=== PATIENT | male | born 1955 | race Caucasian/White ===

== ENCOUNTER 2019-07-21 13:38 | Inpatient (IN) | payer MEDICARE, OTHER ==
[~2019-07-21] VITALS: Ht 171.5 cm; Wt 74.0 kg
[~2019-07-21 13:38] MED LIST: AMLO5TAB9 PO; FLUT1DIS26 IH; LEVO50TA6 PO; TIOT18CA2 IH
--- NOTE | 2019-07-21 14:14 | NUR ---
SEE LIST FOR CURRENT MEDS
[2019-07-21] MEDS ORDERED: NS IV 1000 ML 1,000 ML IV ONE (14:18)
[2019-07-21 14:24] LABS: BASOPHILS % (AUTO) 0 % (0-10); EOSINOPHILS # (AUTO) 0.1 10^3/uL (0.0-0.3); EOSINOPHILS % (AUTO) 0 % (0-10); HEMATOCRIT 41 % (40-54); HEMOGLOBIN 14.1 G/DL (13.3-17.7); LYMPHOCYTES # (AUTO) 2.7 X 10^3 (1.0-4.0); LYMPHOCYTES % (AUTO) 15 % (12-44); MEAN CORPUSCULAR HEMOGLOBIN 31 PG (25-34); MEAN CORPUSCULAR HGB CONC 34 G/DL (32-36); MEAN CORPUSCULAR VOLUME 90 FL (80-99); MONOCYTES # (AUTO) 1.4 X 10^3 (0.0-1.0); MONOCYTES % (AUTO) 7 % (0-12); NEUTROPHILS # (AUTO) 14.4 X 10^3 (1.8-7.8); NEUTROPHILS % (AUTO) 78 % (42-75); PLATELET COUNT 315 10^3/uL (130-400); RED CELL DISTRIBUTION WIDTH 13.2 % (10.0-14.5); WHITE BLOOD COUNT 18.5 10^3/uL (4.3-11.0)
--- NOTE | 2019-07-21 14:45 | ED General ---
General Chief Complaint: Abdominal/GI Problems Stated Complaint: ABD PAIN;STIFF NECK;BACK PAIN Nursing Triage Note: PT AMBULATE TO TRIAGE WITH C/O ABD PAIN, HEADACHE, DIARRHEA, STIFF NECK STARTING 10 DAYS AGO AFTER BEING GIVEN MEDICATION FROM HIS PCP FOR RIGHT SIDED ABD PAIN. Nursing Sepsis Screen: No Definite Risk Source of Information: Patient (PT AND BOTH ANXIOUS, TALKING NON-STOP AT SAME TIME, MULTITUDE OF COMPLAINTS, DIFFICULT TO KEEP ON SUBJECT), Spouse History of Present Illness Date Seen by Provider: Jul 21, 2019 Time Seen by Provider: 14:20 Initial Comments PT ARRIVES VIA POV FROM HOME MULTITUDE OF COMPLAINTS STATES ALL SYMPTOMS BEGAN 07/13/19 C/O GENERALIZED PAIN --"MY WRISTS, MY NECK, MY BACK" STATES "IT STARTED IN MY NECK AND MOVED DOWN TO MY BACK AND THEN MY SHOULDERS, MY CHEST, DOWN MY ARMS AND NOW IT'S IN MY WRISTS" STATES "CAN'T SLEEP, CAN'T EAT" STATES HE SAW DR. MONTALVO 07/14/19 FOR NAUSEA/VOMITING/DIARRHEA AND RIGHT SIDED ABDOMINAL PAIN AND WAS STARTED ON CIPRO AND FLAGYL--PT STATES HE STOPPED TAKING IT ON Wednesday07/18/19 BECAUSE HE THOUGHT IT WAS MAKING HIM WORSE STATES HE HAS NOT ACTUALLY VOMITED, JUST BEEN NAUSEATED. HAS HAD DIARRHEA X 1 TODAY HAS HAD RIGHT SIDED ABDOMINAL PAIN STATES HE "ISN'T HAVING ANY PROBLEMS URINATING--WHEN I DO GO--I'VE ONLY GONE TWICE IN THE LAST 4 DAYS" NO FEVER, BUT HAS HAD SUBJECTIVE CHILLS HAS NOT TAKEN ANYTHING FOR SYMPTOMS NO SICK CONTACTS NO SUSPICIOUS FOODS NO HISTORY OF SIMILAR STATES HE ALSO SAW DR. MONTALVO THIS PAST Wednesday07/17/19 AND HAS A FOLLOW UP APPOINTMENT THIS COMING Wednesday07/24/19 FOR THIS PROBLEM PCP: DR. MONTALVO Allergies and Home Medications Allergies Coded Allergies: No Known Drug Allergies (Unverified , 12/25/15) Home Medications Amlodipine Besylate 5 Mg Tablet, 5 MG PO DAILY, (Reported) Fluticasone/Salmeterol 1 Each Blst.w.dev, 1 EACH IH BID, (Reported) Levothyroxine Sodium 50 Mcg Tablet, 50 MCG PO DAILY, (Reported) Tiotropium [place] 1 Inh Aerp, 2 INH IH DAILY, (Reported) Patient Home Medication List Home Medication List Reviewed: Yes Review of Systems Review of Systems Constitutional: see HPI, chills, malaise EENTM: no symptoms reported Respiratory: no symptoms reported; No cough, No short of breath Cardiovascular: no symptoms reported; No chest pain Gastrointestinal: see HPI, abdominal pain, diarrhea, loss of appetite, nausea; No vomiting Genitourinary: see HPI, decreased output Musculoskeletal: see HPI, back pain, joint pain, joint swelling, muscle pain, muscle stiffness, neck pain Skin: no symptoms reported Psychiatric/Neurological: No Symptoms Reported; Denies Headache, Denies Numbness, Denies Paresthesia, Denies Seizure, Denies Tingling, Denies Weakness Hematologic/Lymphatic: No Symptoms Reported Immunological/Allergic: no symptoms reported Past Cqibfvi-Naxjlz-Cqddfg Hx Patient Social History Alcohol Use: Regular Use Alcohol Beverage of Choice: Beer Recreational Drug Use: Yes (THC) Drug of Choice: POT Smoking Status: Former Smoker Type Used: Cigars 2nd Hand Smoke Exposure: No Recent Foreign Travel: No Contact w/Someone Who Travel: No Recent Infectious Disease Expo: No Recent Hopitalizations: No Physical Abuse: No Sexual Abuse: No Fear: No Immunizations Up To Date Date of Pneumonia Vaccine: Dec 13, 2014 Date of Influenza Vaccine: Aug 26, 2015 Seasonal Allergies Seasonal Allergies: Yes Past Medical History Surgeries: Yes (CATARACTS, EGD/ESOPHAGEAL DILATION) Eye Surgery, Tonsillectomy Respiratory: Yes Asthma, COPD Currently Using CPAP: No Currently Using BIPAP: No Cardiac: Yes High Cholesterol, Hypertension Neurological: No Genitourinary: No Gastrointestinal: Yes (ESOPHAGEAL DILATION FOR STRICTURE) Musculoskeletal: Yes Arthritis Endocrine: Yes Hypothyroidsim HEENT: Yes (CATARACT SURGERY) Cataract Loss of Vision: Denies Hearing Impairment: Denies Cancer: No Psychosocial: No Integumentary: No Blood Disorders: No Physical Exam Vital Signs Vital Signs - First Documented 07/21/19 13:47 Temp 36.6 Pulse 143 Resp 19 B/P (MAP) 125/88 (100) Pulse Ox 98 O2 Delivery Room Air Capillary Refill : Less Than 3 Seconds Height, Weight, BMI Height: 5'8.00" Weight: 170lbs. oz. 77.033325fs; 162.00 BMI Method: General Appearance: No Apparent Distress, WD/WN, Anxious HEENT: PERRL/EOMI, Other (POOR DENTITION) Neck: Limited Range of Motion, Tender Lateral, Tender Midline Respiratory: Normal Breath Sounds, No Accessory Muscle Use, No Respiratory Distress Cardiovascular: Regular Rate, Rhythm, No JVD, No Murmur, Normal Peripheral Pulses Gastrointestinal: Soft Back: Decreased Range of Motion, Muscle Spasm, Vertebral Tenderness, Other (DIFFUSE TENDERNESS TO BACK) Extremity: Normal Capillary Refill, Other (LEFT > RIGHT BILATERAL WRIST SWELLING AND ERYTHEMA, LIMITED ROM OF WRISTS AND ALL EXTREMITIES/JOINTS DUE TO PAIN ) Neurologic/Psychiatric: Alert, Oriented x3, No Motor/Sensory Deficits, cutter out II- XII Norm as Tested, Other (ANXIOUS) Skin: Normal Color, Warm/Dry, Other (ERYTHEMA TO WRISTS) Focused Exam Lactate Level 07/21/19 14:30: Lactic Acid Level 1.90 Lactic Acid Level Laboratory Tests Test 07/21/19 14:30 Lactic Acid Level 1.90 MMOL/L (0.50-2.00) Progress/Results/Core Measures Suspected Sepsis Recent Fever Within 48 Hours: No Infection Criteria Present: None New/Unexplained Altered Menta: No Sepsis Screen: No Definite Risk SIRS Temperature: Pulse: 143 Respiratory Rate: 19 Laboratory Tests 07/21/19 14:10: White Blood Count 18.5H Blood Pressure 125 /88 Mean: 100 07/21/19 14:30: Lactic Acid Level 1.90 Laboratory Tests 07/21/19 14:10: Creatinine 2.22H, INR Comment 1.1, Platelet Count 315, Total Bilirubin 0.8 Results/Orders Lab Results Laboratory Tests Test 07/21/19 14:10 07/21/19 14:30 07/21/19 14:35 Range/Units White Blood Count 18.5 H 4.3-11.0 10^3/uL Red Blood Count 4.58 4.35-5.85 10^6/uL Hemoglobin 14.1 13.3-17.7 G/DL Hematocrit 41 40-54 % Mean Corpuscular Volume 90 80-99 FL Mean Corpuscular Hemoglobin 31 25-34 PG Mean Corpuscular Hemoglobin Concent 34 32-36 G/DL Red Cell Distribution Width 13.2 10.0-14.5 % Platelet Count 315 130-400 10^3/uL Mean Platelet Volume 10.0 7.4-10.4 FL Neutrophils (%) (Auto) 78 H 42-75 % Lymphocytes (%) (Auto) 15 12-44 % Monocytes (%) (Auto) 7 0-12 % Eosinophils (%) (Auto) 0 0-10 % Basophils (%) (Auto) 0 0-10 % Neutrophils # (Auto) 14.4 H 1.8-7.8 X 10^3 Lymphocytes # (Auto) 2.7 1.0-4.0 X 10^3 Monocytes # (Auto) 1.4 H 0.0-1.0 X 10^3 Eosinophils # (Auto) 0.1 0.0-0.3 10^3/uL Basophils # (Auto) 0.0 0.0-0.1 10^3/uL Neutrophils % (Manual) 79 % Lymphocytes % (Manual) 17 % Monocytes % (Manual) 4 % Eosinophils % (Manual) 0 % Basophils % (Manual) 0 % Toxic Granulation 1+ Blood Morphology Comment NORMAL Erythrocyte Sedimentation Rate 82 H 0-30 MM/HR Prothrombin Time 14.2 12.2-14.7 SEC INR Comment 1.1 0.8-1.4 Activated Partial Thromboplast Time 34 24-35 SEC Sodium Level 134 L 135-145 MMOL/L Potassium Level 3.8 3.6-5.0 MMOL/L Chloride Level 99 98-107 MMOL/L Carbon Dioxide Level 21 21-32 MMOL/L Anion Gap 14 5-14 MMOL/L Blood Urea Nitrogen 22 H 7-18 MG/DL Creatinine 2.22 H 0.60-1.30 MG/DL Estimat Glomerular Filtration Rate 30 BUN/Creatinine Ratio 10 Glucose Level 159 H 70-105 MG/DL Uric Acid 6.7 2.6-7.2 MG/DL Calcium Level 10.0 8.5-10.1 MG/DL Corrected Calcium 9.9 8.5-10.1 MG/DL Magnesium Level 1.9 1.6-2.4 MG/DL Total Bilirubin 0.8 0.1-1.0 MG/DL Aspartate Amino Transf (AST/SGOT) 16 5-34 U/L Alanine Aminotransferase (ALT/SGPT) 25 0-55 U/L Alkaline Phosphatase 86 40-136 U/L C-Reactive Protein High Sensitivity 21.20 H 0.00-0.50 MG/DL Total Protein 8.2 6.4-8.2 GM/DL Albumin 4.1 3.2-4.5 GM/DL Amylase Level 31 25-125 U/L Lipase 10 8-78 U/L TSH [place] Testing 0.78 0.35-4.94 UIU/ML Monoscreen NEGATIVE NEGATIVE Lactic Acid Level 1.90 0.50-2.00 MMOL/L Group A Streptococcus Screen NEGATIVE NEGATIVE Micro Results Microbiology 07/21/19 Influenza Types A,B Antigen ([facility]) - Final, Complete My Orders Orders - MELISSA MURCIA DO Ed Iv/Invasive Line Start (07/21/19 14:18) Amylase (07/21/19 14:18) Cbc With Automated Diff (07/21/19 14:18) Comprehensive Metabolic Panel (07/21/19 14:18) Lactic Acid Analyzer (07/21/19 14:18) Lipase (07/21/19 14:18) Magnesium (07/21/19 14:18) Monotest (07/21/19 14:18) Rapid Strep A Screen (07/21/19 14:18) Ua Culture If Indicated (07/21/19 14:18) Blood Culture (07/21/19 14:18) Influenza A And B Antigens (07/21/19 14:18) Ed Iv/Invasive Line Start (07/21/19 14:18) Ns Iv 1000 Ml (Sodium Chloride 0.9%) (07/21/19 14:18) Hs C Reactive Protein (07/21/19 14:30) Erythrocyte Sedimentation Rate (07/21/19 14:30) Protime With Inr (07/21/19 14:30) Partial Thromboplastin Time (07/21/19 14:30) Thyroid Analyzer (07/21/19 14:30) Manual Differential (07/21/19 14:10) Ct Abdomen/Pelvis Wo (07/21/19 15:39) Ed Iv/Invasive Line Start (07/21/19 15:39) Lactated Ringers (Lr 1000 Ml Iv Solution (07/21/19 15:39) Chest Pa/Lat (2 View) (07/21/19 15:39) Abdomen, Flat & Upright/Decub (07/21/19 15:39) Uric Acid (07/21/19 15:48) Methylprednisolone Sod Succ (Solu-Medrol (07/21/19 17:30) Ed Iv/Invasive Line Start (07/21/19 17:20) Lactated Ringers (Lr 1000 Ml Iv Solution (07/21/19 17:20) Medications Given in ED Current Medications Medications Dose Ordered Sig/Priya Route Start Time Stop Time Status Last Admin Dose Admin Lactated Ringer's 1,000 ml @ 0 mls/hr Q0M ONCE IV 07/21/19 15:39 07/21/19 15:41 DC 07/21/19 15:50 1,000 MLS/HR Lactated Ringer's 1,000 ml @ 0 mls/hr Q0M ONCE IV 07/21/19 17:20 07/21/19 17:22 DC 07/21/19 17:42 1,000 MLS/HR Methylprednisolone Sodium Succinate 125 mg ONCE ONCE IVP 07/21/19 17:30 07/21/19 17:31 DC 07/21/19 17:42 125 MG Sodium Chloride 1,000 ml @ 0 mls/hr Q0M ONCE IV 07/21/19 14:18 07/21/19 14:20 DC 07/21/19 14:30 1,000 MLS/HR Vital Signs/I&O 07/21/19 13:47 Temp 36.6 Pulse 143 Resp 19 B/P (MAP) 125/88 (100) Pulse Ox 98 O2 Delivery Room Air Capillary Refill : Less Than 3 Seconds Blood Pressure Mean: 100 Progress Note : Progress Note NO DETERIORATION IN PT'S CONDITION WAS EVENTUALLY ABLE TO VOID AFTER 3RD LITER OF FLUIDS Diagnostic Imaging Comments CXR--NO ACUTE PROCESS ABDOMEN XRAYS--NO ACUTE PROCESS CT ABDOMEN/PELVIS--NO ACUTE PROCESS ALL PER RADIOLOGIST REPORTS AT 1658 Reviewed: Reviewed by Me Departure Communication (Admissions) 1717--SPOKE WITH DR. MEI, HOSPITALIST CARDING MACHINE FEEDER FOR DR. MONTALVO, ACCEPTS PT FOR ADMIT Impression Primary Impression: Inflammatory arthritis Additional Impressions: DEHYDRATION WITH RENAL FAILURE/INSUFFICIENCY Gastroenteritis Disposition: ADMITTED INPATIENT Condition: Stable Admissions Decision to Admit Reason: Admit from ER (General) Decision to Admit/Date: Jul 21, 2019 Time/Decision to Admit Time: 17:15 Departure-Patient Inst. Referrals: ONUR MONTALVO DO (PCP) Primary Care Physician MELISSA MURCIA DO Jul 21, 2019 14:45
[2019-07-21 14:50] LABS: INR 1.1 (0.8-1.4); PROTHROMBIN TIME PATIENT 14.2 SEC (12.2-14.7)
[2019-07-21 14:54] LABS: BASOPHILS % (MANUAL) 0 %; EOSINOPHILS % (MANUAL) 0 %; LYMPHOCYTES % (MANUAL) 17 %; MONOCYTES % (MANUAL) 4 %; NEUTROPHILS % (MANUAL) 79 %; RBC MORPH NORMAL; TOXIC GRANULATION/VACUOLAZATIO 1+
[2019-07-21 15:00] LABS: ALBUMIN 4.1 GM/DL (3.2-4.5); BILIRUBIN,TOTAL 0.8 MG/DL (0.1-1.0); CREATININE SERUM 2.22 MG/DL (0.60-1.30); MAGNESIUM 1.9 MG/DL (1.6-2.4); POTASSIUM 3.8 MMOL/L (3.6-5.0); TOTAL PROTEIN 8.2 GM/DL (6.4-8.2)
[2019-07-21 15:16] LABS: TSH (THYROID ANALYZER) 0.78 UIU/ML (0.35-4.94)
[2019-07-21] MEDS ORDERED: LACTATED RINGERS 1,000 ML IV ONE ×2 (15:39→17:20)
--- NOTE | 2019-07-21 16:11 | Diagnostic Imaging Report ---
Indication: Neck and back pain x3 days PA and lateral chest Heart size and pulmonary vascularity are normal. Lungs are clear. There are no effusions or pneumothoraces. Impression: Negative chest Dictated by: Dictated on workstation # [id number]
--- NOTE | 2019-07-21 16:13 | Diagnostic Imaging Report ---
Indication: Erythema of hands, back pain Supine and upright abdominal images were obtained Bowel gas pattern is normal. There are no pathologic masses or calcifications seen. There is no intraperitoneal free air. Impression: Negative abdomen Dictated by: Dictated on workstation # [id number]
--- NOTE | 2019-07-21 16:45 | Diagnostic Imaging Report ---
PROCEDURE: CT abdomen and pelvis without contrast. TECHNIQUE: Multiple contiguous axial images were obtained through the abdomen and pelvis without the use of intravenous contrast. Auto Exposure Controls were utilized during the CT exam to meet ALARA standards for radiation dose reduction. INDICATION: Abdominal pain. Findings: No comparison available. Limited views of the lower thorax are unremarkable. The liver is normal without focal lesion. No biliary ductal dilation. Gallbladder is normal. Pancreas, spleen and adrenal glands are normal. The kidneys are normal. No hydronephrosis. Urinary bladder is normal. There are no dilated loops of large or small bowel. No obstruction or inflammation. No free fluid or air. No abdominal or pelvic lymphadenopathy. Aorta is normal in caliber without aneurysm. Aorta is atherosclerotic. Appendix is normal. There are no suspicious osseus lesions. Impression: 1. No acute abnormality in the abdomen or pelvis. Dictated by: Dictated on workstation # [id number]
[2019-07-21] MEDS ORDERED: methylPREDNISolone 125 MG (Solu-MEDROL) VIAL IVP ONE (17:30)
[2019-07-21 18:32] LABS: BILIRUBIN,URINE NEGATIVE (NEGATIVE); CLARITY,URINE CLEAR; COLOR,URINE YELLOW; GLUCOSE, URINE (UA) NEGATIVE (NEGATIVE); KETONES,URINE NEGATIVE (NEGATIVE); LEUKOCYTE ESTERASE ,URINE NEGATIVE (NEGATIVE); NITRITE,URINE NEGATIVE (NEGATIVE); PH,URINE 6 (5-9); PROTEIN,URINE 2+ (NEGATIVE); UROBILINOGEN,URINE NORMAL (NORMAL)
[2019-07-21 18:41] LABS: HYALINE CASTS, URINE 25-50 /LPF
[2019-07-21 18:43] LABS: BACTERIA,URINE TRACE /HPF; WBC,URINE RARE /HPF
[2019-07-21 18:44] LABS: AMORPHOUS SEDIMENT,UR FEW AMOR URATES /LPF
[2019-07-21 18:45] LABS: AMPHETAMINE SCREEN, URINE NEGATIVE (NEGATIVE); BARBITURATE SCREEN URINE NEGATIVE (NEGATIVE); BENZODIAZEPINES SCREEN URINE NEGATIVE (NEGATIVE); CANNABINOID SCREEN, URINE POSITIVE (NEGATIVE); COCAINE SCREEN URINE NEGATIVE (NEGATIVE); METHADONE STAT NEGATIVE (NEGATIVE); METHAMPHETAMINE SCREEN URINE S NEGATIVE (NEGATIVE); OPIATE SCREEN URINE NEGATIVE (NEGATIVE); OXYCODONE STAT NEGATIVE (NEGATIVE); PROPOXYPHENE STAT NEGATIVE (NEGATIVE); TRICYCLIC ANTIDEPRESSANTS SCRE NEGATIVE (NEGATIVE)
--- NOTE | 2019-07-21 19:50 | NUR ---
BERONICA VILLALTA admitted to room 410-1, with an admitting diagnosis of DEHYDRATION, RENAL FAILURE, INFLAMMATORY ARTHRITIS,GASTROENTERITIS , on 07/21/19 from DC via WHEELCHAIR, accompanied by STAFF.BERONICA VILLALTA introduced to surroundings, call light, bed controls, phone, TV, temperature control, lights, meal times, smoking policy, visitor policy, side rail policy, bathrooms and showers. Patient Rights given to patient in the handbook. BERONICA VILLALTA verbalizes understanding that [facility] is not responsible for the loss or damage to any personal effects or valuables that are kept in the patients posession during their hospitalization.
[2019-07-21 20:00] VITALS: BP 145/70
[2019-07-21] MEDS ORDERED: ACETAMINOPHEN 500 MG TAB (TYLENOL) PO PRN (20:15)
[2019-07-21] MEDS ORDERED: CATHETER FLUSH 10 ML SYR IV PRN (20:15)
[2019-07-21] MEDS ORDERED: ONDANSETRON 4 MG/2 ML (SDV) Z0FRAN IV PRN (20:15)
[2019-07-21] MEDS: D5 1/2 NS W/KCL 20 MEQ/L 1,000 ML IV SCH (20:18)
[2019-07-21] MEDS: PANTOPRAZOLE 40 MG (PROTONIX) VIAL IV SCH (21:53)
[2019-07-21] MEDS: fentaNYL INJECTION 100 MCG/2 ML AMP IV PRN (22:45)
[2019-07-22] VITALS (7 sets, daily range): BP systolic 128–163; BP diastolic 65–71
[2019-07-22] MEDS: methylPREDNISolone 125 MG (Solu-MEDROL) VIAL IV SCH ×3 (00:14→11:44)
[2019-07-22] MEDS: D5 1/2 NS W/KCL 20 MEQ/L 1,000 ML IV SCH ×3 (01:17→11:44)
[2019-07-22] MEDS ORDERED: ATOR40TA70 PO (05:01)
[2019-07-22] MEDS ORDERED: LISI10TA2 PO (05:05)
[2019-07-22] MEDS ORDERED: PANT40TA3 PO (05:05)
[2019-07-22 06:23] LABS: BASOPHILS % (AUTO) 0 % (0-10); EOSINOPHILS % (AUTO) 0 % (0-10); HEMATOCRIT 36 % (40-54); HEMOGLOBIN 11.5 G/DL (13.3-17.7); LYMPHOCYTES # (AUTO) 0.6 X 10^3 (1.0-4.0); LYMPHOCYTES % (AUTO) 6 % (12-44); MEAN CORPUSCULAR HEMOGLOBIN 29 PG (25-34); MEAN CORPUSCULAR HGB CONC 32 G/DL (32-36); MEAN CORPUSCULAR VOLUME 91 FL (80-99); MEAN PLATELET VOLUME 10.1 FL (7.4-10.4); MONOCYTES # (AUTO) 0.1 X 10^3 (0.0-1.0); MONOCYTES % (AUTO) 1 % (0-12); NEUTROPHILS # (AUTO) 8.8 X 10^3 (1.8-7.8); NEUTROPHILS % (AUTO) 93 % (42-75); PLATELET COUNT 288 10^3/uL (130-400); RED CELL DISTRIBUTION WIDTH 13.2 % (10.0-14.5); WHITE BLOOD COUNT 9.5 10^3/uL (4.3-11.0)
[2019-07-22 06:47] LABS: ALANINE AMINOTRANSFERASE 32 U/L (0-55); ALBUMIN 3.4 GM/DL (3.2-4.5); ALKALINE PHOSPHATASE 86 U/L (40-136); BILIRUBIN,TOTAL 0.3 MG/DL (0.1-1.0); BUN/CREATININE RATIO 15; CALCIUM 8.8 MG/DL (8.5-10.1); CARBON DIOXIDE 19 MMOL/L (21-32); CHLORIDE 110 MMOL/L (98-107); CREATININE SERUM 1.12 MG/DL (0.60-1.30); GFR ESTIMATED > 60; GLUCOSE 236 MG/DL (70-105); POTASSIUM 4.5 MMOL/L (3.6-5.0); SODIUM 139 MMOL/L (135-145); TOTAL PROTEIN 6.8 GM/DL (6.4-8.2)
[2019-07-22] MEDS: PANTOPRAZOLE 40 MG (PROTONIX) VIAL IV SCH (08:46)
[2019-07-22] MEDS ORDERED: PRD50T PO (13:27)
[2019-07-22] MEDS: fentaNYL INJECTION 100 MCG/2 ML AMP IV PRN (13:30)
--- NOTE | 2019-07-22 13:30 | Discharge Instructions ---
Discharge Instructions Reconcile Patient Problems Problems Reviewed?: Yes Discharge Medications New, Converted or Re-Newed RX: Transmitted to Pharmacy Patient Instructions Goal/Follow Up Appt: Follow-up with Dr. Singh as scheduled on Wednesday Activity & Diet Discharge Diet: Low Residue Activity as Tolerated: Yes FARTUN MEI MD Jul 22, 2019 13:30
--- NOTE | 2019-07-22 13:35 | Discharge Summary ---
Discharge Summary Hospital Course Was the Problem List Reviewed?: Yes Hospital Course Date of Admission: Jul 21, 2019 at 17:20 Admission Diagnosis : Family Physician/Provider: Steven Singh DO Date of Discharge: 07/22/19 Discharge Diagnosis: [ ] Hospital Course: [ ] Patient was admitted with an elevated white count and markedly elevated C- reactive protein. His physical exam was consistent with acute inflammatory arthritis that was bilateral and symmetrical in nature. The patient was started on Solu-Medrol and this morning his symptoms have almost completely resolved. He did complain of a little bit of chest tightness EKG was normal and it was felt to be secondary to the fact that we had not restarted his breathing treatments. He is anxious to go home and to eat a normal diet. CT abdomen pelvis did not show any evidence of acute diverticulitis for which he had been seen a week ago by Dr. Singh. At the time of discharge the patient is stable will be discharged on prednisone 50 mg a day. Tick panel and rheumatoid factor are pending at the time of this discharge Labs and Pending Lab Test: Laboratory Tests 07/21/19 14:10: White Blood Count 18.5H, Red Blood Count 4.58, Hemoglobin 14.1, Hematocrit 41, Mean Corpuscular Volume 90, Mean Corpuscular Hemoglobin 31, Mean Corpuscular Hemoglobin Concent 34, Red Cell Distribution Width 13.2, Platelet Count 315, Mean Platelet Volume 10.0, Neutrophils (%) (Auto) 78H, Lymphocytes (%) (Auto) 15 , Monocytes (%) (Auto) 7, Eosinophils (%) (Auto) 0, Basophils (%) (Auto) 0, Neutrophils # (Auto) 14.4H, Lymphocytes # (Auto) 2.7, Monocytes # (Auto) 1.4H, Eosinophils # (Auto) 0.1, Basophils # (Auto) 0.0, Neutrophils % (Manual) 79, Lymphocytes % (Manual) 17, Monocytes % (Manual) 4, Eosinophils % (Manual) 0, Basophils % (Manual) 0, Toxic Granulation 1+, Blood Morphology Comment NORMAL, Erythrocyte Sedimentation Rate 82H, Prothrombin Time 14.2, INR Comment 1.1, Activated Partial Thromboplast Time 34, Sodium Level 134L, Potassium Level 3.8, Chloride Level 99, Carbon Dioxide Level 21, Anion Gap 14, Blood Urea Nitrogen 22H, Creatinine 2.22H, Estimat Glomerular Filtration Rate 30, BUN/Creatinine Ratio 10, Glucose Level 159H, Uric Acid 6.7, Calcium Level 10.0, Corrected Calcium 9.9, Magnesium Level 1.9, Total Bilirubin 0.8, Aspartate Amino Transf (AST/SGOT) 16, Alanine Aminotransferase (ALT/SGPT) 25, Alkaline Phosphatase 86, C-Reactive Protein High Sensitivity 21.20H, Total Protein 8.2, Albumin 4.1, Amylase Level 31, Lipase 10, TSH [place] Testing 0.78, Serum Alcohol < 10, Monoscreen NEGATIVE 07/21/19 14:30: Lactic Acid Level 1.90 07/21/19 14:35: Group A Streptococcus Screen NEGATIVE 07/21/19 18:25: Urine Color YELLOW, Urine Clarity CLEAR, Urine pH 6, Urine Specific Center 1.010L, Urine Protein 2+H, Urine Glucose (UA) NEGATIVE, Urine Ketones NEGATIVE, Urine Nitrite NEGATIVE, Urine Bilirubin NEGATIVE, Urine Urobilinogen NORMAL, Urine Leukocyte Esterase NEGATIVE, Urine RBC (Auto) NEGATIVE, Urine RBC NONE, Urine WBC RARE, Urine Crystals PRESENTH, Urine Amorphous Sediment FEW NAUN URATESH, Urine Bacteria TRACE, Urine Casts PRESENT, Urine Hyaline Casts 25-50H, Urine Mucus NEGATIVE, Urine Culture Indicated NO, Urine Opiates Screen NEGATIVE, Urine Oxycodone Screen NEGATIVE, Urine Methadone Screen NEGATIVE, Urine Propoxyphene Screen NEGATIVE, Urine Barbiturates Screen NEGATIVE, Ur Tricyclic Antidepressants Screen NEGATIVE, Urine Phencyclidine Screen NEGATIVE, Urine Amphetamines Screen NEGATIVE, Urine Methamphetamines Screen NEGATIVE, Urine Benzodiazepines Screen NEGATIVE, Urine Cocaine Screen NEGATIVE, Urine Cannabinoids Screen POSITIVEH 07/22/19 06:08: White Blood Count 9.5, Red Blood Count 3.92L, Hemoglobin 11.5L, Hematocrit 36L, Mean Corpuscular Volume 91, Mean Corpuscular Hemoglobin 29, Mean Corpuscular Hemoglobin Concent 32, Red Cell Distribution Width 13.2, Platelet Count 288, Mean Platelet Volume 10.1, Neutrophils (%) (Auto) 93H, Lymphocytes (%) (Auto) 6L , Monocytes (%) (Auto) 1, Eosinophils (%) (Auto) 0, Basophils (%) (Auto) 0, Neutrophils # (Auto) 8.8H, Lymphocytes # (Auto) 0.6L, Monocytes # (Auto) 0.1, Eosinophils # (Auto) 0.0, Basophils # (Auto) 0.0, Sodium Level 139, Potassium Level 4.5, Chloride Level 110#H, Carbon Dioxide Level 19L, Anion Gap 10, Blood Urea Nitrogen 17, Creatinine 1.12, Estimat Glomerular Filtration Rate > 60, BUN/Creatinine Ratio 15, Glucose Level 236H, Calcium Level 8.8, Corrected Calcium 9.3, Total Bilirubin 0.3, Aspartate Amino Transf (AST/SGOT) 28, Alanine Aminotransferase (ALT/SGPT) 32, Alkaline Phosphatase 86, Total Protein 6.8, Albumin 3.4 Microbiology 07/21/19 Influenza Types A,B Antigen ([facility]) - Final, Complete Home Meds Active Prednisone 50 Mg Tab 50 Mg PO DAILY 7 Days Reported Lisinopril 10 Mg Tablet 10 Mg PO DAILY Pantoprazole Sodium 40 Mg Tablet.dr 40 Mg PO DAILY Atorvastatin Calcium 40 Mg Tablet 40 Mg PO HS Amlodipine Besylate 5 Mg Tablet 5 Mg PO DAILY Levothyroxine Sodium 50 Mcg Tablet 50 Mcg PO DAILY Spiriva (Tiotropium [place]) 1 Inh Aerp 2 Inh IH DAILY Advair 250-50 Diskus (Fluticasone/Salmeterol) 1 Each Blst.w.dev 1 Each IH BID Assessment/Pt Instructions Inflammatory arthritis possibly polymyalgia rheumatica COPD Diverticulitis-resolved Discharge Instructions Discharge Diet: Low Residue Activity as Tolerated: Yes Consultations None Discharge Physical Examination Vital Signs Vital Signs Date Time Temp Pulse Resp B/P (MAP) Pulse Ox O2 Delivery O2 Flow Rate FiO2 07/22/19 08:00 36.2 78 20 151/68 97 Room Air General Appearance: No Apparent Distress, WD/WN HEENT: Pharynx Normal Respiratory: Chest Non Tender, Normal Breath Sounds, No Accessory Muscle Use, No Respiratory Distress, Wheezing Cardiovascular: Regular Rate, Rhythm, No Gallop, No JVD, No Murmur, Normal Peripheral Pulses Gastrointestinal: Normal Bowel Sounds, No Organomegaly, Non Tender, Soft Extremity: Normal Capillary Refill, Normal Inspection, Normal Range of Motion, Non Tender, No Calf Tenderness, Other (bilateral wrists have increased heat and slight effusion) Skin: Normal Color, Warm/Dry Neurologic/Psychiatric: Alert, Oriented x3, No Motor/Sensory Deficits, Normal Mood/Affect, nut grader II-XII Norm as Tested Allergies: Coded Allergies: No Known Drug Allergies (Unverified , 2/17/16) Discharge Summary Date of Admission Jul 21, 2019 at 17:20 Date of Discharge Discharge Date: Jul 22, 2019 Discharge Time: 1600 Clinical Quality Measures DVT/VTE Risk/Contraindication: Risk Factor Score Per Nursin RFS Level Per Nursing on Admit: 4+=Very High FARTUN MEI MD Jul 22, 2019 13:35
[2019-07-22 14:31] LABS: BILIRUBIN,URINE NEGATIVE (NEGATIVE); CLARITY,URINE CLEAR; COLOR,URINE YELLOW; GLUCOSE, URINE (UA) NEGATIVE (NEGATIVE); KETONES,URINE NEGATIVE (NEGATIVE); LEUKOCYTE ESTERASE ,URINE NEGATIVE (NEGATIVE); NITRITE,URINE NEGATIVE (NEGATIVE); PH,URINE 6 (5-9); PROTEIN,URINE 1+ (NEGATIVE); UROBILINOGEN,URINE NORMAL (NORMAL)
[2019-07-22 14:55] LABS: BACTERIA,URINE TRACE /HPF; SQUAMOUS EPITHELIAL CELL,UR 0-2 /HPF
[2019-07-22] MEDS ORDERED: RT-ALBUTEROL/IPRATROPIUM 3 ML (DUONEB) VIAL INH PRN (16:00)
[2019-07-22] MEDS ORDERED: RT-ALBUTEROL/IPRATROPIUM 3 ML (DUONEB) VIAL INH SCH (21:00)
--- NOTE | 2019-07-31 14:03 | Physician Query Clarification ---
PQ-Further Specificity Admission/Discharge Admission Date: Jul 21, 2019 at 17:20 Discharge Date: Jul 22, 2019 at 16:40 The medical record reflects the following clinical scenario: History/Risk Factors: decreased urine output Clinical Findings: decreased urine output Treatment: IV fluids Question: Do you agree with the ED record, stating renal failure/insufficiency? Please document a response in the Progress Notes or Discharge Summary. 1. no renal failure 2. acute renal failure 3. unspecified renal failure 4. Other, with explanation of the clinical findings. 5. Clinically undetermined, no explanation for the clinical findings. PHYSICIAN RESPONSE Can you specify per above: Other, explanation/clinical finding Explanation/Clinical Findings Patient came in with hypotension and acute renal failure secondary to decreased perfussion that corrected with iv fluids Please remember a lack of response to the above will prompt a phone page by [facility]/Coding staff. In responding to this query, please exercise your independent professional judgment. The purpose of this communication is to more accurately reflect the complexity of your patients condition. The fact that a question is asked does not imply that any particular answer is desired or expected. Thank you for your timely response to this clarification. Requestors name: Rayne Lorenzo Phone # [phone] THIS PHYSICIAN QUERY FORM IS A PERMANENT PART OF THE MEDICAL RECORD RAYNE JIMENEZ Jul 31, 2019 14:03 FARTUN MEI MD Aug 07, 2019 09:04
== END 2019-07-22 16:40 | disposition home or self-care (01) | DRG 546 ==
LOC: EDUNIT# 13:38 → ER 13:39 → 4TH 17:20
PROVIDERS: ADMIT Internal Medicine; ATTEND Family Medicine
DX: M35.3 Polymyalgia rheumatica (principal); N17.9 Acute kidney failure, unspecified; J44.9 Chronic obstructive pulmonary disease, unspecified; E78.00 Pure hypercholesterolemia, unspecified; I10 Essential (primary) hypertension; E03.9 Hypothyroidism, unspecified; E86.0 Dehydration; I95.9 Hypotension, unspecified; Z87.19 Personal history of other diseases of the digestive system; Z87.891 Personal history of nicotine dependence
CPT/HCPCS: 36415; 71046; 74019; 74176; 80053; 80306; 80320; 81000; 82150; 83605; 83690; 83735; 84443; 84550; 85007; 85025; 85027; 85610; 85652; 85730; 86141; 86308; 86618; 86666; 86668; 86757; 87040; 87430; 87804; 93005; 94760; 96361; 96374

== ENCOUNTER 2019-07-22 17:47 | Inpatient (IN) | payer MEDICARE, OTHER ==
[~2019-07-22] VITALS: Ht 170 cm; Wt 81.9 kg
[~2019-07-22 17:47] MED LIST changes: +ATOR40TA70 PO; +LISI10TA2 PO; +PANT40TA3 PO; +PRD50T PO
[2019-07-22] MEDS ORDERED: ASPIRIN 81 MG CHEW (CHILDREN'S ASA) ONE (17:48)
--- NOTE | 2019-07-22 17:59 | ED Chest Pain ---
General Chief Complaint: Chest Pain Stated Complaint: CP Source: patient Exam Limitations: no limitations History of Present Illness Date Seen by Provider: Jul 22, 2019 Time Seen by Provider: 17:47 Initial Comments Patient presents to ER by private conveyance with his and chief complaint he was just dismissed from the hospital for a viral GI tract infection. He is having some chest pain that is new EKG said it was okay letting him go home. 20 minutes prior to arrival he began to have severe crushing left-sided chest pain radiating into his left shoulder. He does not have a history of coronary disease but he does have a history of COPD. He quit smoking over a decade ago. He does not have hyperlipidemia but does have high blood pressure. No diabetes. He's having some nausea but he was having nausea prior. No fevers chills cough he do es have shortness of breath. He is wheezing. He was admitted for markedly elevated white count and CRP and thought to have a inflammatory arthritis. He was sent home on steroids. When his chest pain started up he said he was wheezy so he took albuterol breathing treatment but it did not help. This morning he was considered symptom-free at the time of discharge. His says the past 2 weeks been having some GI symptoms and was following with Dr. Montalvo, primary care who put him on Cipro and Flagyl because he has a history of diverticulitis. Then he started having some achiness in his neck and shoulders and upper back and when the Nina Nick Keily Wednesday, 6 days ago. Continue the antibiotics and outpatient management. His GI tract continue to have nausea vomiting diarrhea and so he presented to the ER 2 days ago was seen here and admitted for elevated white count and CRP and rheumatic labs and panels were obtained but are still pending. Allergies and Home Medications Allergies Coded Allergies: cephalexin (Verified Allergy, Unknown, 07/22/19) Home Medications Amlodipine Besylate 5 Mg Tablet, 5 MG PO DAILY, (Reported) Atorvastatin Calcium 40 Mg Tablet, 40 MG PO HS, (Reported) Fluticasone/Salmeterol 1 Each Blst.w.dev, 1 EACH IH BID, (Reported) Levothyroxine Sodium 50 Mcg Tablet, 50 MCG PO DAILY, (Reported) Lisinopril 10 Mg Tablet, 10 MG PO DAILY, (Reported) Pantoprazole Sodium 40 Mg Tablet.dr, 40 MG PO DAILY, (Reported) Prednisone 50 Mg Tab, 50 MG PO DAILY Prescribed by: FARTUN FERRELL on 07/22/19 1327 Tiotropium [place] 1 Inh Aerp, 2 INH IH DAILY, (Reported) Patient Home Medication List Home Medication List Reviewed: Yes Review of Systems Review of Systems Constitutional: No chills, No diaphoresis EENTM: No Blurred Vision, No Double Vision Respiratory: Cough, Shortness of Air, SOA With Exertion, Wheezing Cardiovascular: See HPI, Chest Pain; Denies Edema Gastrointestinal: Denies Abdomen Distended, Denies Abdominal Pain, Denies Constipated; Diarrhea, Nausea, Poor Fluid Intake, Vomiting Genitourinary: Denies Burning, Denies Discharge Musculoskeletal: No back pain, No joint pain Skin: No pruritus, No rash Psychiatric/Neurological: Denies Headache, Denies Numbness Past Blvchfj-Plyhxr-Luktsr Hx Patient Social History Alcohol Use: Occasionally Uses Alcohol Beverage of Choice: Beer Recreational Drug Use: Yes Drug of Choice: POT Smoking Status: Current Someday Smoker Type Used: Cigars 2nd Hand Smoke Exposure: No Recent Foreign Travel: No Contact w/Someone Who Travel: No Recent Hopitalizations: No Immunizations Up To Date Date of Pneumonia Vaccine: Dec 13, 2014 Date of Influenza Vaccine: Aug 26, 2015 Seasonal Allergies Seasonal Allergies: Yes Past Medical History Surgeries: Yes (CATARACTS, EGD/ESOPHAGEAL DILATION) Eye Surgery, Tonsillectomy Respiratory: Yes Asthma, COPD Currently Using CPAP: No Currently Using BIPAP: No Cardiac: Yes High Cholesterol, Hypertension Neurological: No Genitourinary: No Gastrointestinal: Yes (ESOPHAGEAL DILATION FOR STRICTURE) Musculoskeletal: Yes Arthritis Endocrine: Yes Hypothyroidsim HEENT: Yes (CATARACT SURGERY) Cataract Loss of Vision: Denies Hearing Impairment: Denies Cancer: No Psychosocial: No Integumentary: No Blood Disorders: No Physical Exam Vital Signs Vital Signs - First Documented 07/22/19 17:47 Temp 36.6 Pulse 115 Resp 23 B/P (MAP) 164/108 (126) Pulse Ox 97 O2 Delivery Room Air Capillary Refill : Height, Weight, BMI Height: 5'8.00" Weight: 160lbs. 15.0oz. 73.012873pa; 25.15 BMI Method: General Appearance: No Apparent Distress HEENT: PERRL/EOMI, Normal ENT Inspection, Pharynx Normal; No Moist Mucous Membranes Neck: Full Range of Motion, Normal Inspection Respiratory: Accessory Muscle Use (mild), Respiratory Distress (mild), Wheezing Cardiovascular: Regular Rate, Rhythm, No Edema, No Murmur, Normal Peripheral Pulses Gastrointestinal: Normal Bowel Sounds, No Organomegaly, Non Tender, Soft Neurologic/Psychiatric: Alert, Oriented x3 Focused Exam Lactate Level 07/22/19 19:08: Lactic Acid Level 4.05*H Lactic Acid Level Laboratory Tests Test 07/22/19 19:08 Lactic Acid Level 4.05 MMOL/L (0.50-2.00) *H Procedures/Interventions We located a spot where he is having the most severe pain palpable in his left trapezius muscle just superior and medial to the 11th. We clean the site thoroughly with alcohol usage track method and using a 25-gauge 1-1/2 inch needle injected 3 cc and the area then of 0.5% bupivacaine without epinephrine. Patient started procedure well. Band-Aid was placed. Progress/Results/Core Measures Results/Orders Lab Results Laboratory Tests Test 07/22/19 17:51 07/22/19 17:59 07/22/19 19:08 Range/Units White Blood Count 23.6 H 4.3-11.0 10^3/uL Red Blood Count 3.93 L 4.35-5.85 10^6/uL Hemoglobin 11.8 L 13.3-17.7 G/DL Hematocrit 36 L 40-54 % Mean Corpuscular Volume 90 80-99 FL Mean Corpuscular Hemoglobin 30 25-34 PG Mean Corpuscular Hemoglobin Concent 33 32-36 G/DL Red Cell Distribution Width 13.2 10.0-14.5 % Platelet Count 387 130-400 10^3/uL Mean Platelet Volume 10.2 7.4-10.4 FL Neutrophils (%) (Auto) 88 H 42-75 % Lymphocytes (%) (Auto) 8 L 12-44 % Monocytes (%) (Auto) 4 0-12 % Eosinophils (%) (Auto) 0 0-10 % Basophils (%) (Auto) 0 0-10 % Neutrophils # (Auto) 20.8 H 1.8-7.8 X 10^3 Lymphocytes # (Auto) 1.9 1.0-4.0 X 10^3 Monocytes # (Auto) 0.9 0.0-1.0 X 10^3 Eosinophils # (Auto) 0.0 0.0-0.3 10^3/uL Basophils # (Auto) 0.0 0.0-0.1 10^3/uL Neutrophils % (Manual) 86 % Lymphocytes % (Manual) 13 % Monocytes % (Manual) 1 % Eosinophils % (Manual) 0 % Basophils % (Manual) 0 % Band Neutrophils 0 % Toxic Granulation 1+ Blood Morphology Comment NORMAL Prothrombin Time 14.1 12.2-14.7 SEC INR Comment 1.0 0.8-1.4 Activated Partial Thromboplast Time 30 24-35 SEC Sodium Level 140 135-145 MMOL/L Potassium Level 3.7 3.6-5.0 MMOL/L Chloride Level 111 H 98-107 MMOL/L Carbon Dioxide Level 13 L 21-32 MMOL/L Anion Gap 16 H 5-14 MMOL/L Blood Urea Nitrogen 18 7-18 MG/DL Creatinine 1.19 0.60-1.30 MG/DL Estimat Glomerular Filtration Rate > 60 BUN/Creatinine Ratio 15 Glucose Level 203 H 70-105 MG/DL Calcium Level 9.0 8.5-10.1 MG/DL Corrected Calcium 9.1 8.5-10.1 MG/DL Magnesium Level 2.0 1.6-2.4 MG/DL Total Bilirubin 0.3 0.1-1.0 MG/DL Aspartate Amino Transf (AST/SGOT) 45 H 5-34 U/L Alanine Aminotransferase (ALT/SGPT) 48 0-55 U/L Alkaline Phosphatase 103 40-136 U/L Myoglobin 129.6 H 10.0-92.0 NG/ML Troponin I < 0.028 <0.028 NG/ML B-Type Natriuretic Peptide 283.7 H <100.0 PG/ML Total Protein 7.5 6.4-8.2 GM/DL Albumin 3.9 3.2-4.5 GM/DL Lipase 10 8-78 U/L Blood Gas Puncture Site NA Blood Gas Patient Temperature 97.7 Arterial Blood pH 7.44 H 7.37-7.43 Arterial Blood Partial Pressure CO2 20 L 35-45 MMHG Arterial Blood Partial Pressure O2 86 79-93 MMHG Arterial Blood HCO3 13 *L 23-27 MMOL/L Arterial Blood Total CO2 13.8 L 21.0-31.0 MMOL/L Arterial Blood Oxygen Saturation 98 94-100 % Arterial Blood Base Excess -10.4 L -2.5-2.5 MMOL/L Manjinder Test NA Blood Gas Ventilator Setting NA Blood Gas Inspired Oxygen NA Lactic Acid Level 4.05 *H 0.50-2.00 MMOL/L My Orders Orders - VERITO KAT Albuterol/Ipra Inhalation Soln (Duoneb I (07/22/19 18:00) Svn Small Volume Nebulizer (07/22/19 17:54) Ekg Tracing (07/22/19 17:56) Arterial Blood Gas (07/22/19 18:00) BNP (07/22/19 18:00) Lipase (07/22/19 18:00) Ondansetron Injection (Zofran Injectio (07/22/19 18:30) Morphine Injection (Morphine Injection (07/22/19 18:28) Ed Iv/Invasive Line Start (07/22/19 18:28) Ns Iv 500 Ml (Sodium Chloride 0.9%) (07/22/19 18:28) Ct Angio Chest W (07/22/19 18:28) Morphine Injection (Morphine Injection (07/22/19 18:50) Piperacillin Sodium/Tazobactam (Zosyn Vi (07/22/19 19:15) Blood Culture (07/22/19 19:04) Lactic Acid Analyzer (07/22/19 19:04) Morphine Injection (Morphine Injection (07/22/19 19:04) Iohexol Injection (Omnipaque 350 Mg/Ml 1 (07/22/19 19:15) Received Contrast (Hold Metformin- Contr (07/22/19 19:15) Sodium Chloride Flush (Catheter Flush Sy (07/22/19 19:15) Ns (Ivpb) (Sodium Chloride 0.9% Ivpb Bag (07/22/19 19:15) Ed Iv/Invasive Line Start (07/22/19 19:33) Ns Iv 1000 Ml (Sodium Chloride 0.9%) (07/22/19 19:33) Ns Iv 1000 Ml (Sodium Chloride 0.9%) (07/22/19 19:33) Hydromorphone Injection (Dilaudid Inject (07/22/19 19:45) Ketorolac Injection (Toradol Injection) (07/22/19 20:30) Enoxaparin Injection (Lovenox Injection) (07/22/19 20:30) Nitro Drip 71174 Mcg/D5w (Nitroglycerin (07/22/19 20:30) Ticagrelor Tablet (Brilinta Tablet) (07/22/19 20:30) Medications Given in ED Current Medications Medications Dose Ordered Sig/Priya Route Start Time Stop Time Status Last Admin Dose Admin Albuterol/ Ipratropium 3 ml ONCE ONCE INH 07/22/19 18:00 07/22/19 18:01 DC 07/22/19 18:27 3 ML Aspirin 324 mg ONCE ONCE PO 07/22/19 18:00 07/22/19 18:01 DC 07/22/19 17:56 324 MG Hydromorphone HCl 1 mg ONCE ONCE IV 07/22/19 19:45 07/22/19 19:46 DC 07/22/19 19:44 1 MG Iohexol 100 ml ONCE ONCE IV 07/22/19 19:15 07/22/19 19:16 DC 07/22/19 19:22 66 ML Nitroglycerin 0.4 mg UD PRN SL 07/22/19 18:00 07/22/19 18:22 0.4 MG Ondansetron HCl 8 mg ONCE ONCE IVP 07/22/19 18:30 07/22/19 18:31 DC 07/22/19 18:22 8 MG Piperacillin Sod/ Tazobactam Sod 4.5 gm/Sodium Chloride 100 ml @ 200 mls/hr ONCE ONCE IV 07/22/19 19:15 07/22/19 19:44 DC 07/22/19 19:44 200 MLS/HR Sodium Chloride 10 ml NEEDED PRN IV 07/22/19 19:15 07/22/19 19:22 10 ML Sodium Chloride 100 ml ONCE ONCE IV 07/22/19 19:15 07/22/19 19:16 DC 07/22/19 19:22 80 ML Sodium Chloride 500 ml @ 0 mls/hr Q0M ONCE IV 07/22/19 18:28 07/22/19 18:31 DC 07/22/19 18:40 500 MLS/HR Sodium Chloride 1,000 ml @ 0 mls/hr Q0M ONCE IV 07/22/19 19:33 07/22/19 19:34 DC 07/22/19 19:44 1,000 MLS/HR Vital Signs/I&O 07/22/19 07/22/19 17:47 18:05 Temp 36.6 Pulse 115 Resp 23 B/P (MAP) 164/108 (126) Pulse Ox 97 95 O2 Delivery Room Air Room Air Progress Progress Note #1: Time: 18:23 Progress Note Nitroglycerin did help bring his pain down. He has some respiratory distress so we get an ABG which demonstrates he is blowing off all of his CO2 with some respiratory alkalosis and the beginnings of metabolic compromise. He is not hypoxic so I suspect that it is either from pain or anxiety. Plan to repeat an inferior EKG to look for ST elevation. He is receiving a DuoNeb to help with the wheezing. He says this pain is very different from the previous pain is been expressing the past week in his neck shoulders and back. He says it feels like somebody is hitting him squarely in the chest with a baseball bat whereas the other pains felt like muscle spasms. He has a negative blood culture from the past 2 days as well as negative rapid strep and throat culture, Negative mono. Pending labs: Rheumatoid factor, tick titers. A d-dimer will likely be elevated. He is not hypoxic but he is experiencing increased work of breathing so plan to get a CT angiogram of his chest to look for aneurysms and pulmonary emboli. Progress Note #2: Time: 18:51 Progress Note The patient tells the nurse that his pain was not helped much by the first dose of nitroglycerin but the second dose did seem to make a good improvement in his pain. When the tech went in to obtain a second EKG with posterior leads however the patient was again writhing in pain so 4 mg of morphine were ordered which did not seem to touch his pain so a subsequent 6 mg were ordered. Progress Note #3: Time: 19:06 Progress Note Patient has mild improvement of his pain and was able to lay still long enough to get a second EKG with inferior/posterior leads which did not demonstrate any ST elevation. The same ST depression in leads V2, V3 and V4 was noted. The patient is still noting pretty severe 9 out of 10 pain so another 6 mg for a total of 16 mg morphine has been ordered. Thinking about pericarditis/myocarditis we will also obtain blood cultures and lactate and give Zosyn. Initial ECG Impression Date: Jul 22, 2019 Initial ECG Impression Time: 17:49 Initial ECG Rate: 118 Initial ECG Rhythm: S.Tach Initial ECG Intervals: Normal Initial ECG Impression: Nonspecific Changes Initial ECG Comparisson: No Previous ECG Available Comment ST depression in the anterior lateral leads V2, V3, V4. Quite a bit of respiratory artifact. No acute ST elevation EKG : EKG Time: 18:57 Rate: 125 Rhythm: S.Tach Intervals: Normal ECG Comparisson: Unchanged ECG Impression: Nonspecific Changes Comment ST depression in the anterior leads V2, V3 and V4. Negative for clinically significant ST elevation. There is [address] elevation in the right limb le ad and some depression noted in the inferior leads 2, 3 and aVF. Diagnostic Imaging Diagonstic Imaging: Xray Plain Films/CT/US/NM/MRI: chest Comments Unchanged one view chest x-ray; no acute cardiopulmonary process. NAME: BERONICA VILLALTA [facility] REC#: [id number] PT STATUS: REG ER : 1955 PHYSICIAN: ALLI RUBIO APRN ADMIT DATE: 07/22/19/ER Signed Date of Exam:07/22/19 CHEST 1 VIEW, AP/PA ONLY INDICATION: Chest pain COMPARISON: 07/21/2019 FINDINGS: Frontal view of the chest demonstrates clear lungs bilaterally. The heart size is normal. There is no pneumothorax. Osseous structures are normal. IMPRESSION: No acute findings. Normal chest. Dictated by: Dictated on workstation # [id number] Dict: 07/22/191818 Trans: 07/22/191819 [facility] [id number] Interpreted by: KAT HUBER Electronically signed by: KAT HUBER 07/22/191819 Reviewed: Reviewed by Me Diagonstic Imaging: CT (angiogram) Plain Films/CT/US/NM/MRI: chest Comments NAME: BERONICA VILLALTA [facility] REC#: [id number] PT STATUS: REG ER : 1955 PHYSICIAN: VERITO KAT MD ADMIT DATE: 07/22/19/ER Signed Date of Exam:07/22/19 CT ANGIO CHEST W PROCEDURE: CT angiography of the chest with contrast. TECHNIQUE: Multiple contiguous axial images were obtained through the chest after uneventful bolus administration of intravenous contrast. 3D reconstructed CTA MIP acquisitions were also performed. Auto Exposure Controls were utilized during the CT exam to meet ALARA standards for radiation dose reduction. INDICATION: Chest pain. COMPARISON: None. FINDINGS: There is mild cardiac enlargement with coronary artery disease. No paracardial effusion is seen. The pulmonary arteries and aorta are normal. Is no pulmonary embolism or dissection. No aneurysm seen. Centrilobular emphysema is seen throughout both lungs. There is no mass, nodule or infiltrate. There is no pneumothorax or effusion. Osseous structures are age-appropriate. IMPRESSION: 1. No pulmonary embolism or aortic pathology. 2. Coronary disease. 3. Centrilobular emphysema. Dictated by: Dictated on workstation # [id number] Dict: 07/22/191926 Trans: 07/22/[address] [facility] [id number] Interpreted by: KAT HUBER Electronically signed by: KAT HUBER 07/22/191941 Reviewed: Reviewed by In Departure Communication (Admissions) Time/Spoke to Admitting Phy: 20:30 Discussed case lab EKG imaging findings with Dr. Ferrell she agrees to admit the patient to the ICU. She would hold off antibiotics until we have a sure source of bacterial infection. The best. Right now is myocarditis/pericarditis. She agrees with the rest the plan. Time/Spoke to Consulting Phy: 20:15 Discussed case lab EKG imaging findings with Dr. Valencia. He says if the troponin in 2 hours is positive then its likely ACS however otherwise myocarditis/pericarditis or highly likely and he would recommend high-dose NSAIDs, IV nitroglycerin, Lovenox, Brilinta 180 mg and echocardiogram in the morning. He would like to be notified of the troponin in 2 hours. Impression Primary Impression: Severe sepsis Additional Impressions: Chest pain at rest Acute coronary syndrome without high troponin Myocarditis Qualified Codes: I40.9 - Acute myocarditis, unspecified Disposition: ADMITTED INPATIENT Condition: Critical Admissions Decision to Admit Reason: Admit from ER (General) Decision to Admit/Date: Jul 22, 2019 Time/Decision to Admit Time: 19:59 Departure-Patient Inst. Referrals: ONUR MONTALVO DO (PCP/Family) Primary Care Physician Copy Copies To 1: ONUR MONTALVO TITUS J Jul 22, 2019 17:59
[2019-07-22] MEDS ORDERED: ASPIRIN 81 MG CHEW (CHILDREN'S ASA) PO ONE (18:00)
[2019-07-22] MEDS: NITROGLYCERIN 0.4 MG SL TABS BTL 25'S SL PRN ×2 (18:00→18:22)
[2019-07-22] MEDS ORDERED: RT-ALBUTEROL/IPRATROPIUM 3 ML (DUONEB) VIAL INH ONE (18:00)
[2019-07-22 18:02] LABS: BASOPHILS % (AUTO) 0 % (0-10); EOSINOPHILS % (AUTO) 0 % (0-10); HEMATOCRIT 36 % (40-54); HEMOGLOBIN 11.8 G/DL (13.3-17.7); LYMPHOCYTES # (AUTO) 1.9 X 10^3 (1.0-4.0); LYMPHOCYTES % (AUTO) 8 % (12-44); MEAN CORPUSCULAR HEMOGLOBIN 30 PG (25-34); MEAN CORPUSCULAR HGB CONC 33 G/DL (32-36); MEAN CORPUSCULAR VOLUME 90 FL (80-99); MEAN PLATELET VOLUME 10.2 FL (7.4-10.4); MONOCYTES # (AUTO) 0.9 X 10^3 (0.0-1.0); MONOCYTES % (AUTO) 4 % (0-12); NEUTROPHILS # (AUTO) 20.8 X 10^3 (1.8-7.8); NEUTROPHILS % (AUTO) 88 % (42-75); PLATELET COUNT 387 10^3/uL (130-400); RED CELL DISTRIBUTION WIDTH 13.2 % (10.0-14.5); WHITE BLOOD COUNT 23.6 10^3/uL (4.3-11.0)
[2019-07-22 18:13] LABS: PROTHROMBIN TIME PATIENT 14.1 SEC (12.2-14.7)
[2019-07-22 18:14] LABS: ABG BASE EXCESS -10.4 MMOL/L (-2.5-2.5); ABG OXYGEN SATURATION 98 % (94-100); ABG PCO2 20 MMHG (35-45); ABG PH 7.44 (7.37-7.43); ABG PO2 86 MMHG (79-93); ABG TCO2 13.8 MMOL/L (21.0-31.0)
[2019-07-22 18:15] LABS: BAND NEUTROPHILS 0 %; BASOPHILS % (MANUAL) 0 %; EOSINOPHILS % (MANUAL) 0 %; LYMPHOCYTES % (MANUAL) 13 %; MONOCYTES % (MANUAL) 1 %; NEUTROPHILS % (MANUAL) 86 %; RBC MORPH NORMAL; TOXIC GRANULATION/VACUOLAZATIO 1+
[2019-07-22 18:17] LABS: PATIENT TEMP 97.7
--- NOTE | 2019-07-22 18:22 | Diagnostic Imaging Report ---
INDICATION: Chest pain COMPARISON: 07/21/2019 FINDINGS: Frontal view of the chest demonstrates clear lungs bilaterally. The heart size is normal. There is no pneumothorax. Osseous structures are normal. IMPRESSION: No acute findings. Normal chest. Dictated by: Dictated on workstation # [id number]
[2019-07-22 18:23] LABS: ALANINE AMINOTRANSFERASE 48 U/L (0-55); ALBUMIN 3.9 GM/DL (3.2-4.5); ALKALINE PHOSPHATASE 103 U/L (40-136); BILIRUBIN,TOTAL 0.3 MG/DL (0.1-1.0); BUN/CREATININE RATIO 15; CARBON DIOXIDE 13 MMOL/L (21-32); CHLORIDE 111 MMOL/L (98-107); CREATININE SERUM 1.19 MG/DL (0.60-1.30); GFR ESTIMATED > 60; GLUCOSE 203 MG/DL (70-105); POTASSIUM 3.7 MMOL/L (3.6-5.0); SODIUM 140 MMOL/L (135-145); TOTAL PROTEIN 7.5 GM/DL (6.4-8.2)
[2019-07-22] MEDS ORDERED: NS IV 500 ML 500 ML IV ONE (18:28)
[2019-07-22] MEDS ORDERED: morphine INJ 10 MG/ML 1ML (SYR OR VIAL) IVP STA ×3 (18:28→19:04)
[2019-07-22] MEDS ORDERED: ONDANSETRON 4 MG/2 ML (SDV) Z0FRAN IVP ONE (18:30)
[2019-07-22] MEDS ORDERED: PIPERACILLIN SODIUM/TAZOBACTAM 4.5 GM in NS (IVPB) 100 ML IV ONE (19:15)
[2019-07-22] MEDS ORDERED: CATHETER FLUSH 10 ML SYR IV PRN (19:15)
[2019-07-22] MEDS ORDERED: IOHEXOL 350 MG/ML 100 ML (OMNIPAQUE 350) VIAL IV ONE (19:15)
[2019-07-22] MEDS ORDERED: HOLD METFORMIN - RECEIVED CONTRAST 20 ML VIAL IV SCH (19:15)
[2019-07-22] MEDS ORDERED: NS 100 ML (IVPB) BAG IV ONE (19:15)
[2019-07-22] MEDS ORDERED: NS IV 1000 ML 1,000 ML IV SCH (19:33)
[2019-07-22] MEDS ORDERED: NS IV 1000 ML 1,000 ML IV ONE (19:33)
--- NOTE | 2019-07-22 19:35 | Diagnostic Imaging Report ---
PROCEDURE: CT angiography of the chest with contrast. TECHNIQUE: Multiple contiguous axial images were obtained through the chest after uneventful bolus administration of intravenous contrast. 3D reconstructed CTA MIP acquisitions were also performed. Auto Exposure Controls were utilized during the CT exam to meet ALARA standards for radiation dose reduction. INDICATION: Chest pain. COMPARISON: None. FINDINGS: There is mild cardiac enlargement with coronary artery disease. No paracardial effusion is seen. The pulmonary arteries and aorta are normal. Is no pulmonary embolism or dissection. No aneurysm seen. Centrilobular emphysema is seen throughout both lungs. There is no mass, nodule or infiltrate. There is no pneumothorax or effusion. Osseous structures are age-appropriate. IMPRESSION: 1. No pulmonary embolism or aortic pathology. 2. Coronary disease. 3. Centrilobular emphysema. Dictated by: Dictated on workstation # [id number]
[2019-07-22] MEDS ORDERED: HYDROmorphone 2 MG/ML VIAL (DILAUDID) IV ONE (19:45)
[2019-07-22] MEDS ORDERED: KETOROLAC 30 MG/ML VIAL IVP ONE (20:30)
[2019-07-22] MEDS ORDERED: NITRO DRIP 25000 MCG/D5W 250 ML IV SCH (20:30)
[2019-07-22] MEDS ORDERED: TICAGRELOR 90 MG TABLET (BRILINTA) PO ONE (20:30)
[2019-07-22] MEDS ORDERED: ENOXAPARIN 80 MG/0.8 ML (LOVENOX) SYR SC ONE (20:30)
[2019-07-22] MEDS ORDERED: BUP/EPI 0.5% 1:200,000 (SENSORCAINE) 30 ML VIAL INJ ONE (20:30)
[2019-07-22] MEDS ORDERED: BUPIVACAINE 0.5% 30 ML (SENSORCAINE) VIAL ONE (20:44)
[2019-07-22] MEDS ORDERED: BUPIVACAINE 0.5% 30 ML (SENSORCAINE) VIAL INJ ONE (21:00)
[2019-07-22] MEDS ORDERED: RT-ALBUTEROL SULF 2.5 MG/3 ML PRE-MIX VIAL INH ONE (22:00)
[2019-07-22 22:15] VITALS: BP 132/89
[2019-07-22] MEDS ORDERED: NS IV 1000 ML 1,000 ML IV PRN (22:19)
[2019-07-22 22:30] VITALS: BP 103/79
[2019-07-22] MEDS ORDERED: NITROGLYCERIN DRIP 25 MG/250 ML D5W (PRE-MIX) IV SCH (22:30)
[2019-07-22] MEDS ORDERED: ONDANSETRON 4 MG/2 ML (SDV) Z0FRAN IV PRN (22:30)
[2019-07-22] MEDS ORDERED: KETOROLAC 15 MG/ML VIAL IV PRN (22:30)
[2019-07-22] MEDS ORDERED: HYDROmorphone 2 MG/ML VIAL (DILAUDID) IV PRN (22:30)
[2019-07-22 22:45] VITALS: BP 122/87
[2019-07-22] MEDS ORDERED: LORazepam INJ 2 MG/ML (ATIVAN) VIAL IV ONE (22:45)
[2019-07-22 22:51] LABS: ABG BASE EXCESS -11.4 MMOL/L (-2.5-2.5); ABG OXYGEN SATURATION 84 % (94-100); ABG PCO2 31 MMHG (35-45); ABG PO2 52 MMHG (79-93); ABG TCO2 14.9 MMOL/L (21.0-31.0)
[2019-07-22 22:52] LABS: ABG PH 7.28 (7.37-7.43); ALLENS TEST positive; PATIENT TEMP 36.7; VENTILATOR NO
[2019-07-22 22:53] LABS: INSPIRED O2 15L
[2019-07-22 22:56] VITALS: BP 122/87
[2019-07-22 23:00] VITALS: BP 123/86
[2019-07-22] MEDS ORDERED: RT-ALBUTEROL/IPRATROPIUM 3 ML (DUONEB) VIAL INH PRN (23:15)
[2019-07-22 23:50] VITALS: BP 122/83
[2019-07-22 23:52] LABS: BUN/CREATININE RATIO 21; CALCIUM 7.8 MG/DL (8.5-10.1); CARBON DIOXIDE 15 MMOL/L (21-32); CHLORIDE 116 MMOL/L (98-107); CREATININE SERUM 1.07 MG/DL (0.60-1.30); GFR ESTIMATED > 60; GLUCOSE 211 MG/DL (70-105); SODIUM 142 MMOL/L (135-145)
[2019-07-23] VITALS (10 sets, daily range): BP systolic 84–146; BP diastolic 55–93
[2019-07-23] MEDS: NS IV 1000 ML 1,000 ML IV SCH ×2 (00:41→08:47)
[2019-07-23] MEDS ORDERED: RT-ALBUTEROL/IPRATROPIUM 3 ML (DUONEB) VIAL INH SCH (02:00)
[2019-07-23] MEDS ORDERED: NS (IVPB) 50 ML ONE (02:07)
--- NOTE | 2019-07-23 02:35 | NUR ---
0218: Notified advertising dispatch clerks supervisor: Kristen of rapid response and need for emergent intubation 02:31: Etomidate IVP 25 mg 02:33: Succicoline IVP 75 mg 02:35: Dr. Fong intubated: Size 8 ET tube, 24 @ lip, bilat breath sounds confirmed, OG placed 02:45: STAT CXR to confirm placement 0250: 5 mg Midazolam IVP 0255: Dr. Fong Placed TL IJ central line Rt side 0310: Anestesia ADULT NEUROPSYCHOLOGIST: Pj placed Rt radial arterial line
[2019-07-23] MEDS ORDERED: NS (IVPB) 100 ML ONE ×2 (02:41→03:12)
[2019-07-23] MEDS ORDERED: fentaNYL (OMNICELL DRIP KIT ONLY) 250 MCG/5 ML AMP ONE (02:41)
[2019-07-23] MEDS ORDERED: PROPOFOL DRIP (ICU) 100 ML IV ONE (02:42)
[2019-07-23] MEDS ORDERED: NOREPINEPHRINE 4 MG/4 ML (LEVOPHED) AMP IV ONE ×6 (02:46→06:35)
[2019-07-23] MEDS ORDERED: NS (IVPB) 0 ML ONE (02:46)
[2019-07-23] MEDS ORDERED: VASOPRESSIN INJECTION 20 UNIT/ML VIAL ONE (03:11)
[2019-07-23] MEDS ORDERED: NS (IVPB) 250 ML ONE ×5 (03:12→06:36)
[2019-07-23 03:16] LABS: ABG BASE EXCESS -14.1 MMOL/L (-2.5-2.5); ABG OXYGEN SATURATION 90 % (94-100); ABG PCO2 51 MMHG (35-45); ABG PO2 81 MMHG (79-93); ABG TCO2 15.9 MMOL/L (21.0-31.0)
[2019-07-23 03:20] LABS: ABG PH 7.07 (7.37-7.43); ALLENS TEST POSITIVE; INSPIRED O2 100%; PATIENT TEMP 36.4; VENTILATOR YES
--- NOTE | 2019-07-23 04:05 | Anesthesia-Procedure Note ---
Procedures/Interventions Procedure Start/Stop/Diagnosis Date of Procedure: Jul 23, 2019 Start Time: 03:45 Stop Time: 04:00 Arterial Line Arterial Line Catheter: 20G Type: Radial Location: Right Procedure: prepped, draped in sterile fashion, good wave-form was obtained, patient tolerated procedure well, no immediate complications RUSSEL WHALEY CRNA Jul 23, 2019 04:05
[2019-07-23] MEDS ORDERED: RT-ALBUTEROL/IPRATROPIUM 3 ML (DUONEB) VIAL ONE (04:19)
[2019-07-23 04:32] LABS: BASOPHILS % (AUTO) 0 % (0-10); EOSINOPHILS % (AUTO) 0 % (0-10); HEMATOCRIT 39 % (40-54); HEMOGLOBIN 12.8 G/DL (13.3-17.7); LYMPHOCYTES # (AUTO) 1.5 X 10^3 (1.0-4.0); LYMPHOCYTES % (AUTO) 6 % (12-44); MEAN CORPUSCULAR HEMOGLOBIN 31 PG (25-34); MEAN CORPUSCULAR HGB CONC 33 G/DL (32-36); MEAN CORPUSCULAR VOLUME 93 FL (80-99); MEAN PLATELET VOLUME 10.5 FL (7.4-10.4); MONOCYTES # (AUTO) 1.6 X 10^3 (0.0-1.0); MONOCYTES % (AUTO) 6 % (0-12); NEUTROPHILS # (AUTO) 22.6 X 10^3 (1.8-7.8); NEUTROPHILS % (AUTO) 88 % (42-75); PLATELET COUNT 437 10^3/uL (130-400); RED CELL DISTRIBUTION WIDTH 13.6 % (10.0-14.5); WHITE BLOOD COUNT 25.8 10^3/uL (4.3-11.0)
[2019-07-23 04:55] LABS: BILIRUBIN,TOTAL 0.4 MG/DL (0.1-1.0); CALCIUM 7.2 MG/DL (8.5-10.1); CREATININE SERUM 1.46 MG/DL (0.60-1.30); MAGNESIUM 1.9 MG/DL (1.6-2.4); PHOSPHORUS 5.2 MG/DL (2.3-4.7); POTASSIUM 4.7 MMOL/L (3.6-5.0); TOTAL PROTEIN 6.3 GM/DL (6.4-8.2)
[2019-07-23] MEDS ORDERED: VASOPRESSIN INJECTION 20 UNIT in NORMAL SALINE 100 ML IV SCH (05:17)
[2019-07-23] MEDS ORDERED: EPINEPHRINE IV SCH (05:30)
[2019-07-23] MEDS ORDERED: NS IV SCH (05:30)
[2019-07-23] MEDS ORDERED: PROPOFOL DRIP (ICU) 100 ML IV SCH (05:30)
[2019-07-23] MEDS: NOREPINEPHRINE 4 MG in NS (IVPB) 250 ML IV SCH ×2 (05:45→07:40)
[2019-07-23] MEDS ORDERED: DEXMEDETOMIDINE INJECTION 200 MCG in NS (IVPB) 50 ML IV SCH (05:45)
[2019-07-23] MEDS ORDERED: fentaNYL 1,250 MCG/NS 250 ML DRIP IV SCH ×2 (05:45)
[2019-07-23] MEDS ORDERED: FUROSEMIDE 40 MG/4 ML INJ (LASIX) IV ONE (05:45)
--- NOTE | 2019-07-23 05:53 | Procedure/Intervention Note ---
Procedures/Interventions Lumen: triple Central Line Procedure: betadine prep (chlorhexidine prep), sterile drapes applied, sterile dressing applied Position: internal jugular (R) Anesthesia: Lidocaine Volume Anesthetic (ccs): 3 Complications: none Post Position: sutured, good blood return, position confirmed w/ CXR Reason for Intubation: hypoxia, failure to protect airway Date of ETT Placement: Jul 23, 2019 Time of ETT Placement: 0235 Intubation Method: orotracheal Tube Size: 8.00 Medications: Etomidate (20), Succinylcholine (75) Positive End Tide CO2: Yes Breath Sounds after Intubation: bilateral-equal Intubation Complications: vomited, O2 saturation decreased Post Intubation Xray: Yes ET tube and central line in good position. OG above gastric bubble Patient was positioned and preoxygenated to an oxygen saturation of 78%. OPA was placed. Patient had copious thin brown vomitus suctioned through the oropharynx using a Yankauer. Within use a video laryngoscope place an 8 ET tube at 23 at the lips on first attempt. We observed the ET tube going past the vocal cords. We had fogging of the tube as well as colorimetric change on the capnography paper. We had even, symmetric breath sounds bilateral and no air heard over the epigastric region. Patient's oxygen sats began to improve to 89-90%. Ventilator set at 600, 20, PEEP increased to 7, FiO2 100%. I.e. ratio 1-3. Patient's blood pressure was poor with a map around 55 so a central line was initiated and Levophed was started peripherally which brought his map up to 70. Central line position as well as ET tube were confirmed to be on the appropriate place without crossing the midline and there is no pneumothorax on chest x-ray. OG tube needed to be advanced 10 cm and this was discussed and ordered verbally through nursing. VERITO KAT Jul 23, 2019 05:52
[2019-07-23 05:59] LABS: ABG BASE EXCESS -14.2 MMOL/L (-2.5-2.5); ABG OXYGEN SATURATION 59 % (94-100); ABG PCO2 53 MMHG (35-45); ABG PO2 44 MMHG (79-93); ABG TCO2 16.1 MMOL/L (21.0-31.0)
[2019-07-23] MEDS ORDERED: SODIUM BICARB 8.4% 50 MEQ/50 ML VIAL ONE (06:06)
[2019-07-23 06:08] LABS: ALLENS TEST POSITIVE; INSPIRED O2 100%; PATIENT TEMP 36.2; VENTILATOR YES
[2019-07-23 06:09] LABS: ABG PH 7.06 (7.37-7.43)
[2019-07-23] MEDS ORDERED: NS (IVPB) 500 ML ONE (06:35)
[2019-07-23] MEDS ORDERED: CISATRACURIUM 2MG/ML (NIMBEX) 10ML VIAL IV ONE (06:45)
[2019-07-23] MEDS ORDERED: FUROSEMIDE 40 MG/4 ML INJ (LASIX) IVP ONE (06:45)
--- NOTE | 2019-07-23 06:53 | Pulmonary Consultation ---
History of Present Illness History of Present Illness Date of Consultation 07/23/19 06:48 Time Seen by Provider: 06:49 Date of Admission History of Present Illness 64yo with hx of CAD, COPD, and recent admission secondary to a GI viral infection presented to ED secondary to new onset CP. 20 mins to arrival pt started having severe crushing left sided CP radiating to left shoulder. He quit smoking about 10yrs ago. Pt was wheezing when while in ED when he first arrived. At last hospitalization discharge he was sent home with prednisone. After admission to the ICU pt started having worsening respiratory distress. He was placed on BiPAP Allergies and Home Medications Allergies Coded Allergies: cephalexin (Verified Allergy, Unknown, 07/22/19) Home Medications Amlodipine Besylate 5 Mg Tablet, 5 MG PO DAILY, (Reported) Atorvastatin Calcium 40 Mg Tablet, 40 MG PO HS, (Reported) Fluticasone/Salmeterol 1 Each Blst.w.dev, 1 EACH IH BID, (Reported) Levothyroxine Sodium 50 Mcg Tablet, 50 MCG PO DAILY, (Reported) Lisinopril 10 Mg Tablet, 10 MG PO DAILY, (Reported) Pantoprazole Sodium 40 Mg Tablet.dr, 40 MG PO DAILY, (Reported) Prednisone 50 Mg Tab, 50 MG PO DAILY Prescribed by: FARTUN MEI on 07/22/19 1327 Tiotropium [place] 1 Inh Aerp, 2 INH IH DAILY, (Reported) Past Jceufpk-Xscayo-Nwkoar Hx Patient Social History Alcohol Use: Occasionally Uses Number of Drinks Today: AA Alcohol Beverage of Choice: Beer Recreational Drug Use: Yes Drug of Choice: POT Smoking Status: Former Smoker Type Used: Cigarettes 2nd Hand Smoke Exposure: No Recent Foreign Travel: No Contact w/Someone Who Travel: No Recent Infectious Disease Expo: No Recent Hopitalizations: No Immunizations Up To Date Date of Pneumonia Vaccine: Dec 23, 2014 Date of Influenza Vaccine: Aug 26, 2015 Seasonal Allergies Seasonal Allergies: Yes Past Medical History Surgeries: Yes (CATARACTS, EGD/ESOPHAGEAL DILATION) Eye Surgery, Tonsillectomy Respiratory: Yes Asthma, COPD Currently Using CPAP: No Currently Using BIPAP: No Cardiac: Yes High Cholesterol, Hypertension Neurological: No Genitourinary: No Gastrointestinal: Yes (ESOPHAGEAL DILATION FOR STRICTURE) Musculoskeletal: Yes Arthritis Endocrine: Yes Hypothyroidsim HEENT: Yes (CATARACT SURGERY) Cataract Loss of Vision: Denies Hearing Impairment: Denies Cancer: No Psychosocial: No Integumentary: No Blood Disorders: No Sepsis Event Evaluation Height, Weight, BMI Height: 5'8.00" Weight: 160lbs. 15.0oz. 73.434303vr; 26.00 BMI Method: Exam Exam Vital Signs Date Time Temp Pulse Resp B/P (MAP) Pulse Ox O2 Delivery O2 Flow Rate FiO2 07/23/19 06:27 151 34 67 100 07/23/19 06:00 149 22 130/69 (89) 65 Mechanical Ventilator 100.00 07/23/19 05:00 149 20 99/84 (89) 65 Mechanical Ventilator 100.00 07/23/19 04:55 Mechanical Ventilator 100 07/23/19 04:27 138 41 93 100 07/23/19 04:00 146 22 132/93 (106) 95 Mechanical Ventilator 100.00 07/23/19 03:40 35.97456 142 31 140/86 92 Mechanical Ventilator 100.00 07/23/19 03:35 Mechanical Ventilator 100.00 07/23/19 03:00 110 20 84/55 (65) 60 NIV Bilevel 100.00 07/23/19 02:35 100 07/23/19 01:23 90 Simple Mask 10.00 07/23/19 01:00 101 19 92/70 (77) 95 NIV Bilevel 100.00 07/23/19 01:00 101 07/23/19 00:10 97 NIV Bilevel 100 07/23/19 00:00 121 19 122/83 (96) 95 NIV Bilevel 100.00 07/22/19 23:50 126 21 93 100.00 07/22/19 23:00 129 22 123/86 (98) 95 OxyMask 15.00 07/22/19 22:56 36.7 129 93 07/22/19 22:45 131 16 122/87 (99) 89 OxyMask 15.00 07/22/19 22:30 141 20 103/79 (87) 83 OxyMask 15.00 07/22/19 22:15 118 20 130/98 91 Simple Mask 10.00 07/22/19 22:15 Room Air 07/22/19 22:15 120 14 132/89 (103) 83 OxyMask 15.00 07/22/19 22:10 91 Vapotherm 40.00 100 07/22/19 22:07 123 07/22/19 21:31 122 24 124/76 90 Simple Mask 07/22/19 20:58 92 Nasal Cannula 2.00 07/22/19 20:57 129 15 130/97 92 Nasal Cannula 2.00 07/22/19 20:51 130 18 130/97 93 Room Air 07/22/19 18:05 95 Room Air 07/22/19 17:47 36.6 115 23 164/108 (126) 97 Room Air I & O 07/23/19 07:00 Intake Total 1000 ml Output Total 250 ml Balance 750 ml Height & Weight Height: 5'8.00" Weight: 160lbs. 15.0oz. 73.017435sd; 26.00 BMI Method: General Appearance: No Apparent Distress HEENT: PERRL/EOMI, Normal ENT Inspection, Pharynx Normal; No Moist Mucous Membranes Neck: Full Range of Motion, Normal Inspection Respiratory: Accessory Muscle Use (mild), Respiratory Distress (mild), Wheezing Cardiovascular: Regular Rate, Rhythm, No Edema, No Murmur, Normal Peripheral Pulses Capillary Refill: Less Than 3 Seconds Neurologic/Psychiatric: Alert, Oriented x3 Results Lab Laboratory Tests 07/22/19 17:51 07/22/19 23:17 07/23/19 04:10 MANUELITO KRISHNAMURTHY DO Jul 23, 2019 06:53
[2019-07-23] MEDS ORDERED: PHARMACY TO DOSE IV SCH (07:00)
[2019-07-23] MEDS ORDERED: PIPERACILLIN/TAZOBACTAM (BULK) 4.5 GM in NS (IVPB) 100 ML IV SCH (07:00)
[2019-07-23 07:07] LABS: AMPHETAMINE SCREEN, URINE NEGATIVE (NEGATIVE); BARBITURATE SCREEN URINE NEGATIVE (NEGATIVE); BENZODIAZEPINES SCREEN URINE POSITIVE (NEGATIVE); CANNABINOID SCREEN, URINE POSITIVE (NEGATIVE); COCAINE SCREEN URINE POSITIVE (NEGATIVE); METHADONE STAT NEGATIVE (NEGATIVE); METHAMPHETAMINE SCREEN URINE S NEGATIVE (NEGATIVE); OPIATE SCREEN URINE POSITIVE (NEGATIVE); OXYCODONE STAT NEGATIVE (NEGATIVE); PROPOXYPHENE STAT NEGATIVE (NEGATIVE); TRICYCLIC ANTIDEPRESSANTS SCRE POSITIVE (NEGATIVE)
[2019-07-23] MEDS ORDERED: DOPamine DRIP 250 ML IV ONE (07:17)
[2019-07-23] MEDS ORDERED: VASOPRESSIN 20 UNITS/NS 100 ML DRIP IV SCH ×2 (07:30)
[2019-07-23] MEDS ORDERED: DOPamine DRIP 250 ML IV SCH (07:30)
[2019-07-23] MEDS ORDERED: VANCOMYCIN 1500 MG/NS 500 ML IVPB IV NR ×2 (07:30)
[2019-07-23] MEDS ORDERED: CISATRACURIUM 100 MG/NS 200 ML (TOTAL VOLUME 250 ML) IV SCH ×2 (07:30)
[2019-07-23] MEDS ORDERED: morphine INJ 4 MG/ML 1 ML (VIAL/SYRINGE) ONE (07:49)
[2019-07-23] MEDS ORDERED: morphine INJ 10 MG/ML 1ML (SYR OR VIAL) IVP STA (07:50)
[2019-07-23] MEDS ORDERED: LORazepam INJ 2 MG/ML (ATIVAN) VIAL ONE (07:50)
[2019-07-23] MEDS ORDERED: LORazepam INJ 2 MG/ML (ATIVAN) VIAL IVP ONE (07:50)
--- NOTE | 2019-07-23 07:54 | NUR ---
Dr Chong to room to talk to family about comfort measures. At this time family agrees to stop all pressors and proceed with comfort measures. , son, and daughter at bedside with pt. 0812 pt asystole and absence of heart beat confirmed by Daylin ISLAS and Vivienne RN. Dr Chong notified. [place] contacted and on the phone at time of cardiac cessation. [place] contact ended contact as soon as time of was called. Family chose [facility] and this nurse contacted the call center to proceed with release of body. attempt was made to contact pastoral care for family.
--- NOTE | 2019-07-23 08:15 | Pulmonary Progress Note ---
Standard Progress Note Progress Notes Time Seen by Provider: 08:03 Pt is now at max on Levophed, Dopamine, and Vasopressin. Sp02 is still 50's while on 14 peep and 100% Fi02. I talked with family and explained patient's very poor prognosis. I explained we can keep providing supportive care vs going more with comfort care only. They understand with comfort care he will probably sooner however will be comfortable. Family has decided to continue with comfort care only. Pt did get 50mg of Rocuronium this morning around 7am to attempt improve oxygenation. Will not extubate right now since pt was given rocuronium. Will proceed with turning pressors. I expect pt will pass quickly. Assessment & Plan Acute respiratory failure -Currently on vent requiring PEEP 14 and 100% Fi02 cardiogenic shock probably secondary to cocaine UDS was positive for marijuanna and cocain Per family wishes will proceed with comfort care only while keeping pt on vent since rocuronium was given. Focused Exam Lactate Level 07/22/19 19:08: Lactic Acid Level 4.05*H 07/22/19 21:08: Lactic Acid Level 2.95*H 07/23/19 04:10: Lactic Acid Level 3.30*H Lactic Acid Level Laboratory Tests Test 07/23/19 04:10 Lactic Acid Level 3.30 MMOL/L (0.50-2.00) *H MANUELITO KRISHNAMURTHY DO Jul 23, 2019 08:15
[2019-07-23] MEDS ORDERED: CHLORHEXIDINE 0.12% SOLN 15 ML (PERIDEX) UDC PO SCH (09:00)
[2019-07-23] MEDS ORDERED: ASPIRIN E.C. 81 MG (ECOTRIN) TAB PO SCH (09:00)
[2019-07-23] MEDS ORDERED: MIDAZOLAM 5 MG/5 ML (VERSED) VIAL INJ ONE (09:13)
[2019-07-23] MEDS ORDERED: ROCURONIUM 10 MG/ML 5 ML SYRINGE IV ONE (09:13)
[2019-07-23] MEDS ORDERED: SUCCINYLCHOLINE INJ 100 MG/5 ML SYR INJ ONE (09:13)
[2019-07-23] MEDS ORDERED: ETOMIDATE IV SOLN 20 MG/10 ML VIAL IV ONE (09:13)
--- NOTE | 2019-07-23 09:17 | Diagnostic Imaging Report ---
EXAMINATION: Chest 1 view HISTORY: Respiratory distress FINDINGS: Comparison is 07/23/2019. Right IJ catheter tip terminates in the superior vena cava. Endotracheal tube is approximately 4 cm above the diogenes. Gastric tube is in unchanged position in the mid esophagus. A coil is noted in the pharynx. There is worsened severe pulmonary edema. No pneumothorax. Heart size is normal. IMPRESSION: 1. No change in the tip of the gastric tube with a coil noted in the pharynx. 2. Worsening severe pulmonary edema. Dictated by: Dictated on workstation # [id number]
--- NOTE | 2019-07-23 09:21 | Diagnostic Imaging Report ---
EXAMINATION: Chest 1 view HISTORY: Severe sepsis FINDINGS: Comparison is 07/22/2019. Endotracheal tube tip terminates 4 cm above the diogenes. Gastric tube tip terminates in the mid esophagus, approximately 12 cm over the gastrojejunal junction. This was reportedly advanced at the time of the exam. Right IJ catheter tip terminates in the superior vena cava. There is no severe bilateral pulmonary edema. Heart size is normal. No pleural effusion. No pneumothorax. IMPRESSION: 1. New severe bilateral pulmonary edema. 2. Gastric tube tip in mid esophagus, reportedly advanced at the time of the exam. Dictated by: Dictated on workstation # [id number]
--- NOTE | 2019-07-23 09:31 | NUR ---
[facility] number [id number]
--- NOTE | 2019-07-23 10:42 | Discharge Summary ---
Discharge Summary Date of Admission Jul 22, 2019 at 20:20 Date of Discharge July 23, 2019 11 a.m. Discharge Date: Jul 23, 2019 Discharge Time: 11:00 Admission Diagnosis Chest pain Consults/Procedures Consulations Dr. Annie Turk Procedures Mechanical ventilation Arterial line Central line CT chest with contrast Comfort Measures/ End of Life Care: Comfort Measures Cardiopulmonary Arrest: Cardiorespiratory Arrest Date of : Jul 23, 2019 Time of : 08:12 This is a 64-year-old white male who had been discharged the morning of this readmission. The patient had been admitted with symptoms of bilateral and symmetrical inflammatory arthritis. The patient at the time of my interview the morning of discharge had been feeling much better and was anxious to go home. He had not had his breathing treatments overnight and was complaining of a little bit of chest congestion. At my time of my interview he had no specific complaints on the morning of the . Before discharge he did complain of some chest tightness that he felt was related to his breathing, an EKG was obtained which was normal and reviewed by me. The patient was without pain and asymptomatic at the time of discharge. He then presented to the emergency room that evening with complaints of crushing chest discomfort. CT chest pulmonary angiogram and chest x-ray was normal. A CT abdomen pelvis on the had not shown any diverticulitis. As such I was not convinced that the patient had sepsis as an etiology for his elevated white count and lactic acid. The patient had been discharged on prednisone. Dr. Valencia was consulted, and the patient was admitted to the ICU. Overnight he was managed by eICU. Troponin became positive and EKG showed diffuse ischemic changes. The patient went into pulmonary edema became hypoxic and hypotensive. Dr. Fong came and intubated the patient and Dr. Chong took over care. Urine drug screen came back positive for cocaine and cannabis. The noted that he had gone home and had been vaping, after discharge and was using a mix that he had obtained from a friend. She denied having any knowledge that he has ever used cocaine. The patient was made comfort care by Dr. Chong and at 812 in the morning. I had not been informed of the patient's deterioration overnight and found that he had passed on upon my arrival to the ICU this morning. As such no exam was done. Discharge Diagnosis Acute myocardial infarction Pulmonary edema Cardiogenic shock Coronary artery disease FARTUN MEI MD Jul 23, 2019 10:42
--- NOTE | 2019-07-23 12:57 | NUR ---
PT BODY LEAVING UNIT [facility]IA [facility] ACCOMPANIED BY [facility].
== END 2019-07-23 08:12 | disposition expired | DRG 917 ==
LOC: EDUNIT# 17:47 → ER 17:48 → ICU 20:20
PROVIDERS: ADMIT Internal Medicine; ATTEND Internal Medicine
PROC: 3E023NZ Introduction of Analgesics, Hypnotics, Sedatives into Muscle, Percutaneous Approach (ICD-10-PCS; 2019-07-22)
PROC: 5A1935Z Respiratory Ventilation, Less than 24 Consecutive Hours (ICD-10-PCS; principal; 2019-07-23)
PROC: 0BH17EZ Insertion of Endotracheal Airway into Trachea, Via Natural or Artificial Opening (ICD-10-PCS; 2019-07-23)
DX: T40.5X1A Poisoning by cocaine, accidental (unintentional), initial encounter (principal); I21.9 Acute myocardial infarction, unspecified; R57.0 Cardiogenic shock; J81.1 Chronic pulmonary edema; J96.01 Acute respiratory failure with hypoxia; F14.90 Cocaine use, unspecified, uncomplicated; F12.90 Cannabis use, unspecified, uncomplicated; J43.2 Centrilobular emphysema; Z51.5 Encounter for palliative care; I10 Essential (primary) hypertension; E78.00 Pure hypercholesterolemia, unspecified; M19.90 Unspecified osteoarthritis, unspecified site; E03.9 Hypothyroidism, unspecified; I25.10 Atherosclerotic heart disease of native coronary artery without angina pectoris; Z87.891 Personal history of nicotine dependence
CPT/HCPCS: 36415; 36600; 71045; 71275; 80048; 80053; 80061; 80306; 82805; 83605; 83690; 83735; 83874; 83880; 84100; 84478; 84484; 85007; 85025; 85027; 85379; 85610; 85730; 87040; 87070; 87205; 93005; 93041; 93306; 94002; 94640; 94660; 94799; 96361; 96365; 96372; 96375; 96376